=== PATIENT | female | born 1965 ===

== ENCOUNTER 2017-05-02 14:18 | Emergency (ER) | payer BC ==
[2017-05-02] MEDS ORDERED: Amoxicillin/Clavulanate K 875-125 MG Tab ONE (14:20)
--- NOTE | 2017-05-02 15:42 | EDM.PDOC ---
ED HPI GENERAL MEDICAL PROBLEM - General Chief Complaint: General Stated Complaint: Sinus Infection Time Seen by Provider: 05/02/17 14:45 Source of Information: Reports: Patient History Limitations: Reports: No Limitations - History of Present Illness INITIAL COMMENTS - FREE TEXT/NARRATIVE: According to patient she has been having nasal congestion and drainage for past 2 wks. Drainage has been greenish yellow. and gradually worsening over time. Cough and drainage bothers her at night. has been having pain in the face and dull achy to throbbing type. Has been having short episode of dizzy spells. No fever or chills. No body aches. No nausea or vomiting. No shortness of breath or wheezing asoo with it. Pt has tried OTC mucinex for few days and has not helped much. Duration: Week(s): (2), Getting Worse Severity: Moderate Improves with: Reports: None Worsens with: Reports: None Associated Symptoms: Reports: Cough, Headaches. Denies: Confusion, Fever/Chills , Nausea/Vomiting, Rash, Shortness of Breath, Syncope, Weakness ED ROS GENERAL - Review of Systems Review Of Systems: See Below Constitutional: Denies: Fever, Chills HEENT: Reports: Rhinitis, Sinus Problem, Throat Pain. Denies: Ear Pain, Glasses , Throat Swelling, Vision Change Respiratory: Reports: Cough, Sputum. Denies: Shortness of Breath, Pleuritic Chest Pain Cardiovascular: Denies: Chest Pain, Lightheadedness GI/Abdominal: Denies: Abdominal Pain, Nausea, Vomiting Musculoskeletal: Denies: Joint Pain, Joint Swelling Skin: Denies: Pruritis, Rash ED EXAM, GENERAL - Physical Exam Exam: See Below Exam Limited By: No Limitations General Appearance: Alert, WD/WN, No Apparent Distress, Other (Febrile with Temp of 101.9F) Eye Exam: Bilateral Eye: EOMI, PERRL Ears: Normal External Exam, Normal Canal, Hearing Grossly Normal, Normal TMs Ear Exam: Bilateral Ear: TM normal, Tenderness Nose: Nasal Drainage (greenish yellow mucoid) Throat/Mouth: Normal Inspection, Normal Lips, Normal Teeth, Normal Gums, Normal Oropharynx, Normal Voice, No Airway Compromise Head: Atraumatic, Normocephalic, Sinus Tenderness (tender over frontal and maxilary sinus B/L) Neck: Normal Inspection, Supple, Non-Tender, Full Range of Motion Respiratory/Chest: No Respiratory Distress, Lungs Clear, Normal Breath Sounds, No Accessory Muscle Use, Chest Non-Tender Cardiovascular: Normal Peripheral Pulses, Regular Rate, Rhythm, No Edema, No Gallop, No JVD, No Murmur, No Rub Neurological: Alert, Oriented, CN II-XII Intact, Normal Cognition, Normal Gait, Normal Reflexes, No Motor/Sensory Deficits Skin Exam: Warm, Intact Course - Vital Signs Text/Narrative:: Pt is running fever, hence I did get CBC to make sure that he does not have acute purulent bacterial sinusitis. her white count is normal at 5.4 with normal differentials. Pt reassured has acute fronto maxillary sinusitis. As her symptoms have been going on for close to 2 wks, I have empirically covered her with Augmentin. Okay to take mucinex as needed. Advised steam inhalations 2-3 times daily. Avoid decongestants over the counter. rest and hydration. Symptoms should gradually improve. followup in clinic if symptoms worsen. Last Recorded V/S: Last Vital Signs Temp 101.9 F H 05/02/17 15:22 Pulse 112 H 05/02/17 15:22 Resp 18 05/02/17 15:22 BP 122/66 05/02/17 15:22 Pulse Ox 97 05/02/17 15:22 - Orders/Labs/Meds Labs: Laboratory Tests 05/02/17 Range/Units 15:32 WBC 5.5 (4.0-11.0) K/uL RBC 4.37 (3.80-5.80) M/uL Hgb 13.4 (11.5-16.5) g/dL Hct 40.0 (37.0-47.0) % MCV 92 (76-96) fL MCH 30.7 (27.0-32.0) pg MCHC 33.5 (31.0-35.0) g/dL RDW 13.1 (11.0-16.0) % Plt Count 236 (150-500) K/uL MPV 9.9 (6.0-10.0) fL Neut % (Auto) 71.8 H (45.0-70.0) % Lymph % (Auto) 14.3 L (20.0-40.0) % [place] % (Auto) 13.2 H (3.0-10.0) % Eos % (Auto) 0.2 L (1.0-5.0) % Baso % (Auto) 0.5 (0.0-0.5) % Neut # (Auto) 3.97 (2.00-7.50) K/uL Lymph # (Auto) 0.79 L (1.50-4.00) K/uL [place] # (Auto) 0.73 (0.20-0.80) K/uL Eos # (Auto) 0.01 L (0.04-0.40) K/uL Baso # (Auto) 0.03 (0.02-0.10) K/uL Departure - Departure Time of Disposition: 16:30 Disposition: Home, Self-Care 01 Condition: Good Clinical Impression: Sinusitis - Discharge Information Referrals: PCP,None [Primary Care Provider] - Forms: ED Department Discharge Additional Instructions: Pt reassured she has acute fronto maxillary sinusitis. As her symptoms have been going on for close to 2 wks, I have empirically covered her with Augmentin 875mg twice dialy for 10 days. Okay to take mucinex as needed. Advised steam inhalations 2-3 times daily. Avoid decongestants over the counter. rest and hydration. Symptoms should gradually improve. Followup in clinic if symptoms worsen. - Problem List & Annotations (1) Sinusitis SNOMED Code(s): 82629772 Code(s): J32.9 - CHRONIC SINUSITIS, UNSPECIFIED Status: Acute Current Visit: Yes - Problem List Review Problem List Initiated/Reviewed/Updated: Yes - Assessment/Plan Assessment:: frontomaxillary sinusitis Plan: Pt is running fever, hence I did get CBC to make sure that he does not have acute purulent bacterial sinusitis. her white count is normal at 5.4 with normal differentials. Pt reassured has acute fronto maxillary sinusitis. As her symptoms have been going on for close to 2 wks, I have empirically covered her with Augmentin. Okay to take mucinex as needed. Advised steam inhalations 2-3 times daily. Avoid decongestants over the counter. rest and hydration. Symptoms should gradually improve. followup in clinic if symptoms worsen.
== END 2017-05-02 16:19 | disposition home or self-care (01) ==
LOC: LB.ED 14:18
DX: J32.9 Chronic sinusitis, unspecified (principal)
CPT/HCPCS: 36415; 85025; 99283; A9270